=== PATIENT | male | born 1995 | race Hispanic/Latino ===

== ENCOUNTER 2023-11-09 20:51 | Emergency (ER) | payer BC, MEDICAID ==
[~2023-11-09] VITALS: Ht 154.9 cm; Wt 72.6 kg
[2023-11-09 20:54] VITALS: TEMP 98.4
[2023-11-09 23:22] LABS: APPEARANCE,URINE TURBID (CLEAR); BILIRUBIN,URINE NEGATIVE (NEGATIVE); COLOR,URINE YELLOW (YELLOW); GLUCOSE, URINE (UA) NEGATIVE (NEGATIVE); KETONES,URINE 5 mg/dL (NEGATIVE); LEUKOCYTE ESTERASE ,URINE 500 Leu/uL (NEGATIVE); NITRATE,URINE NEGATIVE (NEGATIVE); OCCULT BLOOD,URINE MODERATE (NEGATIVE); PROTEIN,URINE 70 mg/dL (NEGATIVE)
[2023-11-09 23:36] LABS: ADD UA MICROSCOPIC YES
[2023-11-09 23:38] LABS: BACTERIA,URINE MOD /HPF (None Seen); MUCUS,URINE RARE LPF (None Seen); RBC,URINE 26-50 /HPF (0-1); SQUAMOUS EPITHELIAL CELL,UR RARE /HPF (0-2); WBC CLUMP MANY /HPF (0-1); WBC,URINE TNTC /HPF (0-1)
[2023-11-10] MEDS: cefTRIAXone 1G VIAL IM ONE (00:02)
[2023-11-10] MEDS: AZITHROMYCIN 250 MG TABLET PO ONE (00:02)
[2023-11-10] MEDS: CLOTRIMAZOLE 30 GM CREAM.GM. TP ONE (00:32)
[2023-11-10 00:47] VITALS: BP 112/79; PULSE 65; RESP 18; O2SAT 99
--- NOTE | 2023-11-10 01:03 | ERN ---
General Chief Complaint: Penis Problem Stated Complaint: C/O BLISTER TO TIP OF PENIS Time Seen by MD: 22:20 History of Present Illness Initial Comments Mr Rincon is a 28-year-old male with no significant past medical history who presents today with penile pain. Patient was uncircumcised and reports that it has been noticing some color changes in the tip of his penis. Patient reports that when he pulls back his foreskin he feels some discomfort. Patient was able to tell with the he has had any discharge Allergies: Coded Allergies: No Known Drug Allergies (Unverified Allergy, Unknown, 11/09/23) Past Medical History Past Medical History: No Pertinent History Past Surgical History: None ROS Dictation Constitutional: Negative for fever,chills, and weight loss Eyes: Negative for injury, pain,redness, and discharge ENT: Negative for injury,pain or swelling Cardiovascular: Negative for chest pain, palpitations, and edema Respiratory: Negative for shortness of breath, cough, and wheezing, Abdomen/GI: Negative for abdominal pain, nausea, vomiting, diarrhea, and constipation Back: Negative for injury and pain : Penile pain MS/Extremity: Negative for injury and deformity Skin: Negative for rash, and discoloration Neuro: Negative for headache, weakness, numbness, tingling, and seizure Psych: Negative for suicide ideation, homicidal ideation, and hallucinations Physical Exam Physical Exam Dictation General: awake, alert, NAD Head/Face: Normocephalic, atraumatic Eyes: PERRL, EOMI, vision at baseline ENT: oral cavity clear Neck: Trachea midline, supple Cardiovascular: RRR, normal S1/S2, No MRGs, no JVD Respiratory: CTAB, no respiratory distress, No rales or wheezes Abdomen: Soft, non-tender, non-distended, normal bowel sounds Skin: Warm, dry, normal turgor MS/Extremity: Retraction of foreskin shows curd like deposits with increased redness over the glans penis Neuro: COAx4, GCS 15, strength 5/5, CN 2-12 intact Psych: Normal behavior, mood, and affect normal Results Laboratory and Microbiology Lab and Micro Result Laboratory Tests Test 11/09/23 23:15 Urine Color YELLOW (YELLOW) Urine Appearance TURBID (CLEAR) Urine pH 6.0 (5.0-8.0) Urine Specific [place] 1.035 (1.001-1.031) Urine Protein 70 mg/dL (NEGATIVE) H Urine Glucose (UA) NEGATIVE mg/dL (NEGATIVE) Urine Ketones 5 mg/dL (NEGATIVE) H Urine Occult Blood MODERATE (NEGATIVE) H Urine Nitrate NEGATIVE (NEGATIVE) Urine Bilirubin NEGATIVE mg/dL (NEGATIVE) Urine Urobilinogen 2.0 mg/dL (0.2-1.0) H Urine Leukocyte Esterase 500 Uriel/uL (NEGATIVE) H Urine RBC 26-50 /HPF (0-1) H Urine WBC TNTC /HPF (0-1) H Urine WBC Clumps (Auto) MANY /HPF (0-1) Urine Squamous Epithelial Cells RARE /HPF (0-2) Urine Bacteria MOD /HPF (None Seen) MDM Patient has been given topical antifungals . Patient was also given medication for considerations of chlamydia and Neisseria gonorrhea MDM: Differential diagnosis: Balanitis Rationale: Tests considered and ordered secondary to shared decision making include: Previous outside records reviewed: Old ER visits. Risk of complication and/or morbidity or mortality of patient management: None Medications-Per medication reconciliation Need for hospitalization: Patient does not meet criteria for hospitalization. Need for emergency major/minor surgery: No There are no social concerns with this patient. Prescription drug management Prescriptions will include symptomatic care Patient's prior external medical records from other ER visits were reviewed by me as indicated. Prior testing and results from previous visits were reviewed. Prior tests were taken into account with medical decision making and resource utilization, independent historian/historians were used to obtain complete medical history. I independently interpreted the test that were performed, results were reviewed by me and considered findings on radiology if ordered. Medical management and examination interpretation discussions were had by me with other qualified healthcare professionals as indicated for the patient's care. ED Course Orders Procedure Category Date Status Time Urinalysis Profile LAB 11/09/23 Complete 23:00 Chlamydia & Gc Pcr GONZALES 11/09/23 In Process 23:00 Clotrimazole PHA 11/10/23 In Process (Lotrimin) 09:00 Ceftriaxone 1g Vial PHA 11/09/23 Complete (Rocephine 1g Inj) 23:30 Azithromycin PHA 11/09/23 Complete (Zithromax) 23:30 Culture Urine GONZALES 11/09/23 In Process 23:36 Current Medications Medications (Trade) Dose Ordered Sig/[place] Route PRN Reason Start Time Stop Time Status Last Admin Dose Admin Azithromycin (Zithromax) 1,000 mg ONCE ONCE PO 11/09/23 23:30 11/09/23 23:31 DC 11/10/23 00:02 Ceftriaxone Sodium (ROCEphine 1G INJ) 1 gm ONCE ONCE IM 11/09/23 23:30 11/09/23 23:31 DC 11/10/23 00:02 Clotrimazole (Lotrimin) 1 APPL BID ONCE TP 11/10/23 09:00 11/10/23 09:01 11/10/23 00:32 Vital Signs Date Time Temp Pulse Resp B/P (MAP) Pulse Ox O2 Delivery O2 Flow Rate FiO2 11/10/23 00:47 65 18 112/79 99 Room Air* 0 21 11/09/23 22:56 74 18 123/82 98 Room Air* 0 21 11/09/23 20:54 98.4 85 20 128/78 97 Room Air DX & DISP Disposition: Discharge Departure Impression: Primary Impression: Balanitis Condition: Stable Additional Instructions: Please follow up with your primary care physician in the next 1-7 days for drea nuance of care. Please keep your penis clean. Please apply the antifungal medication twice a day. Referrals: RAMIRO ARGUETA MD (PCP) HALLIE BLACK MD Nov 10, 2023 01:03
--- NOTE | 2023-11-10 18:29 | NUR ---
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
--- NOTE | 2023-11-11 12:55 | NUR ---
PATIENT PROVIDED WITH CULTURE RESULTS AND EDUCATION REGARDING RESULTS.
== END 2023-11-10 01:21 | disposition home or self-care (01) ==
LOC: EDH 20:51
DX: N48.1 Balanitis (principal)
CPT/HCPCS: 99284; 87086; 87491; 87591; 81001; 96372; J0696